=== PATIENT | female | born 1990 | race Asian ===

== ENCOUNTER 2023-01-25 21:05 | Emergency (ER) | payer BC ==
[~2023-01-25] VITALS: Ht 152.4 cm; Wt 52.2 kg
[2023-01-25 21:25] VITALS: BP_SYST 152
[2023-01-25 22:15] LABS: BASOPHILS # (AUTO) 0.1 K/uL (0.0-0.2); BASOPHILS % (AUTO) 0.6 % (0.0-2.0); EOSINOPHILS % (AUTO) 0.4 % (0.0-4.0); HEMATOCRIT 40.8 % (36-48); HEMOGLOBIN 13.4 g/dL (12.0-16.0); LYMPHOCYTES # (AUTO) 1.6 K/uL (1.0-5.5); LYMPHOCYTES % (AUTO) 13.7 % (20.5-51.5); MEAN CORPUSCULAR HEMOGLOBIN 30 pg (27-31); MEAN CORPUSCULAR HGB CONC 33 % (32-36); MEAN CORPUSCULAR VOLUME 93 fL (79.0-98.0); MONOCYTES # (AUTO) 0.6 K/uL (0.0-1.0); MONOCYTES % (AUTO) 5.4 % (1.7-9.3); NEUTROPHILS % (AUTO) 79.9 % (40.0-70.0); PLATELET COUNT (AUTO) 328 K/uL (130-430); RED BLOOD CELL COUNT(AUTO) 4.42 MIL/uL (4.2-6.2); RED CELL DISTRIBUTION WIDTH 14.1 % (9.0-15.0); WHITE BLOOD COUNT (AUTO) 11.3 K/uL (4.8-10.8)
[2023-01-25 22:30] LABS: ALBUMIN 3.7 g/dL (3.4-4.8); CALCIUM 8.1 mg/dL (8.4-11.0); CREATININE 0.43 mg/dL (0.55-1.30); TOTAL BILIRUBIN 0.6 mg/dL (0.0-1.0)
[2023-01-25 22:40] LABS: BILIRUBIN,URINE NEGATIVE (NEGATIVE); BLOOD, URINE 1+ (NEGATIVE); COLOR,URINE YELLOW (YELLOW); GLUCOSE,URINE NEGATIVE (NEGATIVE); KETONES,URINE 3+ (NEGATIVE); LEUKOCYTE ESTERASE ,URINE 1+ (NEGATIVE); NITRITE, URINE NEGATIVE (NEGATIVE); PROTEIN URINE NEGATIVE (NEGATIVE); UROBILINOGEN,URINE 0.2 (0.2-1.0)
[2023-01-25 22:46] LABS: HCG,QUAL RESULT NEGATIVE (NEGATIVE)
[2023-01-25 22:50] LABS: CLARITY/URINE HAZY (CLEAR)
[2023-01-25 22:58] LABS: BACTERIA,URINE MODERATE /HPF (None Seen); MUCUS,URINE 2+ /LPF (None Seen); RBC,URINE 0-3 /HPF (0-3); YEAST,URINE Moderate /HPF (None Seen)
[2023-01-26] MEDS ORDERED: ONDANSETRON 4 MG ODT TAB PO ONE
[2023-01-26] MEDS ORDERED: KETOROLAC TROMETHAMINE 30 MG VIAL IM ONE
[2023-01-26] MEDS ORDERED: CEFU250T85 PO ×2 (01:40→01:41)
[2023-01-26] MEDS ORDERED: HYDR-3917 PO (01:40)
[2023-01-26 02:02] VITALS: BP_SYST 145
== END 2023-01-26 02:02 | disposition home or self-care (01) ==
LOC: SED 21:05
DX: N39.0 Urinary tract infection, site not specified (principal); R10.11 Right upper quadrant pain; E11.9 Type 2 diabetes mellitus without complications; J45.909 Unspecified asthma, uncomplicated; I10 Essential (primary) hypertension; Z79.899 Other long term (current) drug therapy
CPT/HCPCS: 99285; 76705; 80053; 81000; 82150; 84703; 83690; 85025; 87086; 36415; 81025; 83605; 74176; 76376; 96372; Q0162; J1885

== ENCOUNTER 2023-08-20 01:06 | Emergency (ER) | payer BC ==
[~2023-08-20] VITALS: Ht 152.4 cm; Wt 58.1 kg
[~2023-08-20 01:06] MED LIST: CEFU250T85 PO; HYDR-3917 PO
[2023-08-20 01:18] VITALS: BP_SYST 114; PULSE 74; RESP 19; TEMP 98.8; O2SAT 97
[2023-08-20] MEDS ORDERED: KETOROLAC TROMETHAMINE 15 MG VIAL IVP ONE (03:15)
[2023-08-20 03:33] LABS: BASOPHILS # (AUTO) 0.1 K/uL (0.0-0.2); EOSINOPHILS # (AUTO) 0.1 K/uL (0.0-0.4); EOSINOPHILS % (AUTO) 0.7 % (0.0-4.0); HEMATOCRIT 40.7 % (36-48); HEMOGLOBIN 13.5 g/dL (12.0-16.0); LYMPHOCYTES # (AUTO) 2.4 K/uL (1.0-5.5); LYMPHOCYTES % (AUTO) 24.4 % (20.5-51.5); MEAN CORPUSCULAR HEMOGLOBIN 31 pg (27-31); MEAN CORPUSCULAR HGB CONC 33 % (32-36); MEAN CORPUSCULAR VOLUME 92 fL (79.0-98.0); MONOCYTES # (AUTO) 0.7 K/uL (0.0-1.0); MONOCYTES % (AUTO) 6.9 % (1.7-9.3); NEUTROPHILS # (AUTO) 6.7 K/uL (1.8-7.7); PLATELET COUNT (AUTO) 430 K/uL (130-430); RED CELL DISTRIBUTION WIDTH 13.9 % (9.0-15.0)
[2023-08-20 03:53] LABS: ALANINE AMINOTRANSFERASE 30 U/L (12-78); ALBUMIN 3.7 g/dL (3.4-4.8); ANION GAP 9 (5-15); ASPARTATE AMINOTRANSFERASE 14 U/L (10-37); CALCIUM 8.9 mg/dL (8.4-11.0); CARBON DIOXIDE 27 mmol/L (23-29); CHLORIDE 103 mmol/L (98-107); GFR AFRICAN AMERICAN 148 mL/min (>90); GFR NON AFRICAN-AMERICAN 122 mL/min (>90); GLUCOSE 111 mg/dL (74-106); INR 0.9 (0.8-1.2); POTASSIUM 3.5 mmol/L (3.5-5.1); PROTHROMBIN TIME 9.5 SECS (9.5-12.5); SODIUM SERUM 139 mmol/L (136-145); TOTAL BILIRUBIN 0.3 mg/dL (0.0-1.0); TOTAL PROTEIN, SERUM 7.4 g/dL (6.4-8.3); UREA NITROGEN, BLOOD 11 mg/dL (8-21)
[2023-08-20 03:56] LABS: BILIRUBIN,DIRECT 0.1 mg/dL (0.0-0.3)
[2023-08-20] MEDS ORDERED: iohexoL 350 mgI/mL, 100 ML INFUS..BTL IV ONE (04:53)
[2023-08-20 06:57] LABS: COVID19 ANTIGEN SOFIA FIA NEGATIVE (NEGATIVE)
[2023-08-20 06:58] LABS: INFLUENZA TYPE A Negative (NEGATIVE); INFLUENZA TYPE B NEGATIVE (NEGATIVE)
[2023-08-20] MEDS ORDERED: ALBMDI INH ×3 (07:16→07:43)
[2023-08-20] MEDS ORDERED: PHEDM120 PO ×3 (07:16→07:43)
[2023-08-20 07:47] VITALS: BP_SYST 114; PULSE 74; RESP 19; TEMP 98.8; O2SAT 97
== END 2023-08-20 07:46 | disposition home or self-care (01) ==
LOC: SED 01:06
DX: B34.9 Viral infection, unspecified (principal); R06.02 Shortness of breath; R05.9 Cough, unspecified; R11.0 Nausea; J45.909 Unspecified asthma, uncomplicated; I10 Essential (primary) hypertension; E78.5 Hyperlipidemia, unspecified; Z88.6 Allergy status to analgesic agent; Z79.899 Other long term (current) drug therapy; Z20.822 Contact with and (suspected) exposure to COVID-19
CPT/HCPCS: 99285; 71275; 71045; 87426; 80076; 80048; 83880; 85025; 85379; 85610; 85730; 84484; 36415; 93005; 87804 ×2; 76376; Q9967